=== PATIENT | female | born 1995 | race Caucasian/White ===

== ENCOUNTER → 2018-08-05 | Outpatient (CLI) | payer OTHER ==
--- NOTE | 2018-08-06 12:23 | XR ---
EXAMINATION TYPE: XR scoliosis survey DATE OF EXAM: 08/05/2018 COMPARISON: None HISTORY: Low back pain TECHNIQUE: AP and lateral views thoracic and lumbar spine were obtained. FINDINGS: There is a mild scoliosis within the mid thoracic spine. Degenerative tear. Between T5 and T10 scoliosis is 6 degrees between T5 and T10 there is side bending towards the left with the convexity to the right centered at approximately T8 IMPRESSION: 1. 6 degrees scoliosis between T5 and T10 centered at T8 with a convexity to the right
== END | disposition home or self-care (01) ==
LOC: RADXRMAIN 16:58
PROVIDERS: ATTEND Nurse Practitioner Women's Health
DX: M41.84 Other forms of scoliosis, thoracic region (principal)
CPT/HCPCS: 72082

== ENCOUNTER → 2019-06-06 | Outpatient (CLI) | payer OTHER | END | disposition home or self-care (01) | LOC: LABWHC1 10:34 | PROVIDERS: ATTEND Nurse Practitioner Family | DX: J02.9 Acute pharyngitis, unspecified (principal); R50.9 Fever, unspecified; Z20.828 Contact with and (suspected) exposure to other viral communicable diseases | CPT/HCPCS: 87502 ==